=== PATIENT | male | born 1965 | race Caucasian/White ===

== ENCOUNTER 2020-10-27 08:22 | Day surgery (SDCO) | payer OTHER ==
[~2020-10-27] VITALS: Ht 175.3 cm; Wt 101.2 kg
[2020-10-27 09:12] LABS: BASOPHIL 0.7 % (0-2); EOSINOPHIL 2.8 % (0-5); HGB 15.9 g/dl (13.2-18.0); LYMPHOCYTE 16.4 % (15-48); MCH 29.6 pg (25.0-31.0); MCHC 33.8 g/dL (32.0-36.0); MCV 87.4 fL (78.0-100.0); MPV 8.9 fL (6.0-9.5); NEUTROPHIL 72.5 % (41-80); NRBC 0; PLT 216 K/uL (150-400); RBC 5.38 M/uL (4.70-6.00); RDW 12.5 % (11.5-14.0); WBC 12.7 K/uL (4.0-10.5)
[2020-10-27 09:15] LABS: ALBUMIN 3.8 g/dL (3.4-5.0); BILIRUBIN - TOTAL 0.5 mg/dL (0.2-1.0); BUN/CREAT RATIO (CALC) 12.8 RATIO; CREATININE 0.86 mg/dL (0.67-1.17); GLOBULIN (CALCULATION) 3.6 g/dL; INR 0.97 (0.9-1.2); MAGNESIUM 1.9 mg/dL (1.8-2.4); POTASSIUM 4.2 mmol/L (3.5-5.1); PROTHROMBIN TIME 12.2 SECONDS (11.4-13.6); TOTAL PROTEIN 7.4 g/dL (6.4-8.2)
[2020-10-27 11:06] LABS: LACTIC ACID 1.4 mmol/L (0.4-1.9)
[2020-10-27] MEDS ORDERED: LOVAZA1 GM PO (12:25)
[2020-10-27] MEDS ORDERED: MVI PO (12:25)
[2020-10-28 06:21] LABS: BASOPHIL 0.8 % (0-2); EOSINOPHIL 3.9 % (0-5); HCT 44.4 % (42.0-52.0); HGB 14.9 g/dl (13.2-18.0); LYMPHOCYTE 18.5 % (15-48); MCH 29.9 pg (25.0-31.0); MCHC 33.6 g/dL (32.0-36.0); MONOCYTE 5.9 % (0-12); MPV 9.2 fL (6.0-9.5); NEUTROPHIL 70.4 % (41-80); NRBC 0; PLT 192 K/uL (150-400); RBC 4.99 M/uL (4.70-6.00); RDW 12.7 % (11.5-14.0); WBC 9.5 K/uL (4.0-10.5)
[2020-10-28 07:13] LABS: BUN/CREAT RATIO (CALC) 17.1 RATIO; CREATININE 0.76 mg/dL (0.67-1.17); POTASSIUM 4.7 mmol/L (3.5-5.1)
[2020-10-28 07:14] LABS: CKMB 0.7 ng/mL (0.0-3.6)
[2020-10-28] MEDS ORDERED: VIBRAMYCIN100 MG PO ×2 (08:58→11:15)
[2020-10-28] MEDS ORDERED: TOPROL XL 50 MG50 MG PO (08:58)
--- NOTE | 2020-10-28 10:00 | NUR ---
10/27/20 Patient lives at home with spouse. He is independent in the home and community. No discharge planning needs are anticipated.
[2020-10-28] MEDS ORDERED: ASPIRIN81 MG PO (10:02)
--- NOTE | 2020-10-28 10:58 | NUR ---
[address] scan.
--- NOTE | 2020-10-28 11:59 | NUR ---
1145 saline lock removed from left AC area. Discharge instructions given, questions answered.
== END 2020-10-28 11:50 | disposition home or self-care (01) ==
LOC: FER 08:22 → FTCU 10:38
PROVIDERS: Emergency Medicine; ADMIT Internal Medicine
DX: I47.1 Supraventricular tachycardia (principal); J18.1 Lobar pneumonia, unspecified organism; I37.1 Nonrheumatic pulmonary valve insufficiency; J90 Pleural effusion, not elsewhere classified; Z20.822 Contact with and (suspected) exposure to COVID-19
CPT/HCPCS: 36415; 71045; 71046; 71260; 80048; 80053; 80061; 82553; 83605; 83735; 84443; 84484; 85025; 85610; 93005; 94010; G0378; J0153; J1650; Q9967; U0002